=== PATIENT | male | born 1945 | race Caucasian/White ===

== ENCOUNTER 2017-10-01 18:28 | Emergency (ER) | payer OTHER ==
[~2017-10-01 18:28] MED LIST: ACULAR5 ML OPH; AMARYL 2 MG2 MG PO; ASPIRIN EC81 M1 PO; BUPROPION HCL150 M4 PO; COREG3.125 MG PO; CYMBALTA30 M1 PO; ESCITALOPRAM10 MG PO; FENOFIBRATE145 MG PO; FOLIC ACID0.8 M2 PO; GLUCOPHAGE1000 M1 PO; NAPROXEN375 M1 PO; NEURONTIN300 MG PO; PERCOCET 325 MG1 TAB PO; PERCOCET 5-3251 EACH PO; TOBREX5 ML OPH; TRAZODONE HCL50 M1 PO; VITAMIN B125000 MCG PO; VITAMIN D5000 I1 PO; ZYRTEC10 M3 PO
--- NOTE | 2017-10-01 20:01 | CT SCAN REPORT ---
EXAMINATION: CT HEAD WITHOUT CONTRAST CLINICAL INFORMATION: Concussion. Fall. Blurry vision. COMPARISON: CT scan of the head 09/24/2017. TECHNIQUE: Contiguous axial imaging was performed from the skull base to vertex without intravenous administration of contrast. DLP: 618.01 mGy-cm FINDINGS: There is no acute intracranial hemorrhage or abnormal extra-axial collection. No intracranial mass effect or midline shift. Lateral and third ventricles are normal. No hydrocephalus. Ill-defined foci of hypoattenuation are visualized within the periventricular white matter that most likely represent a chronic manifestation of small vessel ischemia. Grossly no evidence of acute territorial infarct. The calvarium and skull base are intact. Mastoid air cells and middle ear cavities are well aerated. Visualized paranasal sinuses are well-aerated. IMPRESSION: No evidence of acute territorial infarct or hemorrhage. A few chronic small vessel ischemic changes are visualized within the periventricular white matter.
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
[2017-10-01 20:39] VITALS: BP 116/75
== END 2017-10-01 20:40 ==
LOC: ERH 18:28
DX: S06.0X9A Concussion with loss of consciousness of unspecified duration, initial encounter (principal); W19.XXXA Unspecified fall, initial encounter; Y92.512 Supermarket, store or market as the place of occurrence of the external cause; Y93.9 Activity, unspecified

== ENCOUNTER 2017-12-31 23:57 | Emergency (ER) | payer OTHER ==
[~2017-12-31] VITALS: Ht 162.6 cm; Wt 82.7 kg
[2018-01-01 01:22] VITALS: BP 158/83
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
== END 2018-01-01 03:22 ==
LOC: ERH 23:57
DX: S16.1XXA Strain of muscle, fascia and tendon at neck level, initial encounter (principal); S09.90XA Unspecified injury of head, initial encounter; M54.5 Low back pain; V49.40XA Driver injured in collision with unspecified motor vehicles in traffic accident, initial encounter; Y92.9 Unspecified place or not applicable; Y93.9 Activity, unspecified
CPT/HCPCS: 72100